=== PATIENT | male | born 1980 | race Caucasian/White ===

== ENCOUNTER 2022-10-24 08:47 | Emergency (ER) | payer OTHER, SELFPAY ==
--- NOTE | ~2022-10-24 | XR_ITS ---
EXAMINATION: XR abdomen/kub 1V DATE: 10/24/2022 09:37 INDICATION: Left abdominal pain. TECHNIQUE: A supine view of the abdomen on 2 radiographs was obtained. COMPARISON: None. FINDINGS: There are no dilated loops of bowel. There is a small volume of stool in the colon. There i s no visible urolithiasis. IMPRESSION: 1. Normal bowel gas pattern. Reviewed, dictated and finalized at location A. [facility] [employer]
[2022-10-24 09:07] VITALS: BP 135/110; PULSE 92; RESP 16; TEMP 37.1; O2SAT 100
--- NOTE | 2022-10-24 09:32 | ED.ABDPAIN ---
HPI - Abdominal Pain General Chief Complaint: Abdominal Pain Stated Complaint: lt side abdominal pain Time Seen by Provider: 10/24/22 09:10 Source: patient Mode of arrival: ambulatory Limitations: no limitations History of Present Illness HPI narrative: Abdirahman is a 42-year-old male patient presenting to the clinic today with complaints of left mid to lower abdominal pain x1 day. He reports his symptoms started late last night/early this morning. He reports that he has a sharp pain to the left mid to lower abdomen. States that the pain comes and goes. Currently he is not having much pain. States he had 1 episode while in the clinic today and only lasted about 15 seconds of sharp pain. No history kidney stones. Denies any nausea or vomiting. He denies any concerns with bowel movements. He denies any known injury to the left side of his abdomen or any heavy lifting that could have caused a muscle strain. Related Data Home Medications Medication Instructions Recorded Confirmed lisinopril 10 mg tablet 10 mg PO DAILY 10/24/22 10/24/22 Allergies Allergy/AdvReac Type Severity Reaction Status Date / Time No Known Allergies Allergy Unverified 10/24/22 09:05 Review of Systems Review of Systems: Pertinent positives per HPI. Patient denies any fever, chills, rash, headache, visual changes, dizziness, cough, runny nose, sore throat, shortness of breath, chest pain, palpitations, nausea, vomiting, diarrhea, constipation, or any urinary issues. PMFSH Comments At the time of my signature, I reviewed and agree with the nursing past medical, surgical, social, and family history. There is no relevant family history pertinent to the patient complaint. Exam Narrative: General: Well-developed, well nourished, in no apparent distress. Head: Normocephalic, atraumatic. Cardio: Regular rate and rhythm, s1 and s2 normal, no murmur appreciated. Resp: Clear to auscultation bilaterally, no rhonchi, rales, wheezing or rubs. Abdomen: Soft, pliable, bowel sounds present in all quadrants, mild tenderness to palpation over the left mid quadrant, no organomegly, no CVAT tenderness. Course Course Emergency Course: Portions of this record may have been created with voice recognition software. Level of Care: Express Care Visit Vital Signs Vital signs: Vital Signs Temperature 37.1 C 10/24/22 09:07 Pulse Rate 92 10/24/22 09:07 Respiratory Rate 16 10/24/22 09:07 Blood Pressure 135/110 H 10/24/22 09:07 Pulse Oximetry 100 10/24/22 09:07 Temperature 37.1 C 10/24/22 09:07 Pulse Rate 92 10/24/22 09:07 Respiratory Rate 16 10/24/22 09:07 Blood Pressure 135/110 H 10/24/22 09:07 Pulse Oximetry 100 10/24/22 09:07 Vital signs reviewed MDM - Abdominal Pain MDM Narrative Medical decision making narrative: At the time of visit patient is resting comfortably on the exam table he does have mild tenderness to the left mid quadrant. Urinalysis was negative for any sign of blood or urinary infection. KUB x-ray was performed and was negative for any sign of kidney stone, ureteral stone, or constipation. Recommend further evaluation by PCP or if pain gets worse going to the emergency room. Patient voiced understanding of discharge instructions and agrees to treatment plan. Differential Diagnosis Differential diagnosis: Likely abdominal pain, calculus of kidney and constipation Lab Data Labs: Urine Glucose Negative Reference Range: Negative Urine Bilirubin Negative Reference Range: Negative Urine Ketone Negative Reference Range: Negative Urine Specific [place] 1.020 Reference Range:1.001-1.035 Urine Blood Negative
== END 2022-10-24 10:21 | disposition home or self-care (01) ==
PROVIDERS: Emergency Provider Nurse Practitioner Family; PCP Family Medicine
DX: R10.32 Left lower quadrant pain (principal)
CPT/HCPCS: 74018; 81003; 99203; G0463